=== PATIENT | male | born 1995 | race African-American/Black ===

== ENCOUNTER 2018-11-18 08:53 | Emergency (ER) | payer OTHER ==
[2018-11-18 09:00] VITALS: BP 120/68
[2018-11-18] MEDS ORDERED: DIPHENHYDRAMINE HCL 50 MG CAPSULE PO ONE (09:45)
[2018-11-18] MEDS ORDERED: PREDNISONE 20 MG TABLET PO ONE (09:45)
[2018-11-18] MEDS ORDERED: FAMOTIDINE 20 MG TABLET PO ONE (09:45)
--- NOTE | 2018-11-18 09:49 | ER Document Report ---
HPI - HPI Patient complains to provider of: skin rash Time Seen by Provider: 11/18/18 09:38 Onset: This morning Onset/Duration: Better Pain Level: 0 Context: Patient reports hives that started this morning. Patient states that hives have since started to resolve. Patient states he is been getting episodes in which he breaks out in hives off and on since the weather started to get warm this season. Patient denies any new foods medications or detergents. Associated Symptoms: denies: Chest pain, Nonproductive cough, Productive cough, Fever, Headache Exacerbated by: Denies Relieved by: Denies Similar symptoms previously: Yes Recently seen / treated by doctor: No - ROS ROS below otherwise negative: Yes Systems Reviewed and Negative: Yes All other systems reviewed and negative - CONSTITUTIONAL Constitutional: DENIES: Fever, Chills - EENT EENT: DENIES: Sore Throat - CARDIOVASCULAR Cardiovascular: DENIES: Chest pain - RESPIRATORY Respiratory: DENIES: Trouble Breathing, Coughing - GASTROINTESTINAL Gastrointestinal: DENIES: Nausea, Patient vomiting - DERM Skin Problems: Rash Past Medical History - General Information source: Patient - Social History Smoking Status: Never Smoker Chew tobacco use (# tins/day): No Frequency of alcohol use: None Drug Abuse: None Occupation: Active duty Family History: Reviewed & Not Pertinent Patient has suicidal ideation: No Patient has homicidal ideation: No - Medical History Medical History: Negative Renal/ Medical History: Denies: Hx Peritoneal Dialysis Surgical Hx: Negative Vertical Provider Document - CONSTITUTIONAL Agree With Documented VS: Yes Exam Limitations: No Limitations General Appearance: WD/WN, No Apparent Distress - INFECTION CONTROL TRAVEL OUTSIDE OF THE [place] IN LAST 30 DAYS: No - HEENT HEENT: Atraumatic, Normal ENT Exam, Normocephalic Notes: No angioedema, no potential airway compromise - NECK Neck: Normal Inspection, Supple. negative: Lymphadenopathy-Left, Lymphadenopathy-Right - RESPIRATORY Respiratory: Breath Sounds Normal, No Respiratory Distress - CARDIOVASCULAR Cardiovascular: Regular Rate, Regular Rhythm, No Murmur - MUSCULOSKELETAL/EXTREMETIES Musculoskeletal/Extremeties: MAEW - NEURO Level of Consciousness: Awake, Alert, Appropriate Motor/Sensory: No Motor Deficit - DERM Integumentary: Warm, Dry, Rash - Urticarial rash to upper extremities Course - Re-evaluation Re-evalutation: 11/18/18 09:47 Patient with urticarial rash to upper extremities that had presented to the past as well but is presently resolved. Patient without any potential airway compromise no difficulty breathing. Patient denies any new foods medications or detergents. Patient states that he has been having these symptoms off and on since the weather changed. Patient encouraged to see his primary doctor for referral for allergy testing. - Vital Signs Vital signs: Temp Pulse Resp BP Pulse Ox 97.8 F 66 18 120/68 97 11/18/18 08:58 11/18/18 08:58 11/18/18 08:58 11/18/18 08:58 11/18/18 08:58 Discharge - Discharge Clinical Impression: Urticaria Condition: Stable Disposition: HOME, SELF-CARE Instructions: Acute Urticaria ([facility]), Use of Diphenhydramine, Steroid Medication Additional Instructions: Return immediately for any new or worsening symptoms Followup with your primary care provider, call tomorrow to make a followup appointment Take Benadryl [id number] every 6 hours as needed to help with hives Prescriptions: Famotidine [Pepcid 20 mg Tablet] 20 mg PO BID #12 tablet Prednisone [Deltasone 10 mg Tablet] 10 mg PO ASDIR PRN #21 tablet PRN Reason: Referrals: [facility] [Provider Group] - Follow up as needed
== END 2018-11-18 10:01 | disposition home or self-care (01) ==
LOC: ER 08:53
DX: L50.9 Urticaria, unspecified (principal)
CPT/HCPCS: 99282; J7512